=== PATIENT | female | born 2005 | race African-American/Black ===

== ENCOUNTER 2025-02-24 17:03 | Emergency (ER) | payer MEDICAID, SELFPAY ==
--- NOTE | 2025-02-24 17:17 | ED_ITS ---
HPI - General Adult General Chief complaint: Animal Bite Stated complaint: dog bite on face Time Seen by Provider: 02/24/25 17:19 Source: patient Mode of arrival: ambulatory Limitations: no limitations History of Present Illness ED Provider: Cristina Wilkins PA-C HPI narrative: Patient is a 19 year old assigned female at with no reported medical history presenting to the emergency department today with a dog bite to the face. Patient states that her friend's dog greeted her by jumping and bitting at her face. Patient states that she is unsure if the dog is up to date on rabies vaccinations and she is unsure if she is up to date on tetanus. Patient denies any dizziness, lightheadedness, abdominal pain, nausea, vomiting, fever, chills, blurry vision, double vision, loss of vision, chest pain, difficulty breathing, shortness of breath, back pain, night sweats, pain with urination, increased urinary frequency, increased urinary urgency, blood in her urine or stool, syncope or a near syncopal episode, bowel incontinence, bladder incontinence, or any other complaints at this time. Relieving factors: none Exacerbating factors: none Associated symptoms: denies other symptoms Treatments prior to arrival: none Related Data Previous Rx's ?Medication ?Instructions ?Recorded amoxicillin 875 mg-potassium 1 tab PO BID 10 days #20 tabs 02/24/25 clavulanate 125 mg tablet Allergies Allergy/AdvReac Type Severity Reaction Status Date / Time No Known Allergies Allergy Verified 02/24/25 17:19 Review of Systems 2 Constitutional: Constitutional: Reports no additional constitutional complaints, Denies chills, Denies fever(s) and Denies night sweats Eyes: Eyes: Reports no additional eye complaints, Denies blurry vision, Denies change in vision, Denies diplopia, Denies eye discharge, Denies loss of vision and Denies eye pain ENT: Denies dizziness Comments: dog bite to face Cardiovascular: Cardiovascular: Reports no additional cardiovascular complaints, Denies chest pain, Denies lightheadedness, Denies Loss of Consciousness and Denies dyspnea Respiratory: Respiratory: Reports no additional respiratory complaints and Denies dyspnea Gastrointestinal: Gastrointestinal: Reports no additional gastrointestinal complaints, Denies abdominal pain, Denies melena, Denies hematochezia, Denies change in bowel habits and Denies change in stool character Genitourinary: Genitourinary: Denies hematuria, Denies urinary frequency, Denies dysuria, Denies urinary incontinence, Denies urinary hesitancy and Denies urinary urgency Musculoskeletal: Musculoskeletal: Reports no additional musculoskeletal complaints, Denies numbness and Denies tingling Neurologic: Denies dizziness, Denies loss of vision, Denies numbness and Denies tingling Psychiatric: Psychiatric: Reports no additional psychiatric complaints Endocrine: Endocrine: Reports no additional endocrine complaints Hematologic/Lymphatic: Hematologic/Lymphatic: Reports no additional hematologic/lymphatic complaints Allergic/Immunologic: Allergic/Immunologic: Reports no additional allergic/immunologic complaints [facility] Past Medical History Attestation statement: The following information was validated with the patient. Source: old records reviewed and nursing notes reviewed Social History Social History Advance Directives: No Advance Directives Information Provided: No Do you have a plan to hurt others: No Plan Physical Exam ED Vital Signs: Vital Signs - 24 hr 02/24/25 17:18 02/24/25 19:02 Temperature 97.5 F 97.5 F Pulse Rate 107 H 107 H Respiratory Rate 18 18 Blood Pressure 133/71 133/71 Pulse Oximetry 99 99 Oxygen Delivery Method Room Air Room Air BMI result Body Mass Index 24.9 Const General: cooperative, no acute distress, alert and awake Nutritional Appearance: well nourished Orientation/consciousness: patient oriented x3 Limitations: no limitations HENMT Head: Yes normal to inspection and Yes atraumatic Ears: hearing grossly normal bilaterally and external ears normal General nose exam: Normal external nose present, no nasal discharge noted and no epistaxis Nose image: 2 1. small abrasion secondary to dog bite / scratch Mouth: Normal oral and palatal mucosa present, no drooling and no muffled voice Eyes General: appearance normal, both eyes and all related structures Periorbital: periorbital findings normal Eyelids: Yes eyelids normal Conjunctivae: conjunctivae normal Pupils: Equal, round and reactive pupils present EOM: EOMs intact bilaterally Neck Neck: Yes normal visual inspection, Yes full ROM and Yes no lymphadenopathy Chest Chest palpation & inspection: normal inspection of the chest Resp Effort & Inspection: normal respiratory effort and able to speak in complete sentences GI Inspection: Yes normal to inspection Neuro General: patient oriented x3, moves all extremities and CN's II-XI intact bilaterally Cranial nerves: Yes Equal, round and reactive pupils present Cognition (Neuro): normal cognition Extrem General: Yes normal to inspection, Yes full ROM and Yes capillary refill normal Psych Appearance: grossly normal Mental Status: mental status grossly normal Affect: normal affect Attitude: cooperative Thought process: Normal thought process present Thought content: Normal thought content present Insight: Good insight present (Psych) Medications Administered Discontinued Medications Generic Name Dose Route Start Last Admin Trade Name Freq PRN Reason Stop Dose Admin Amoxicillin/Clavulanate Potassium 875 mg 02/24/25 17:23 02/24/25 17:48 Amoxicillin/Potassium Clav 875 Mg Tablet PO 02/24/25 17:24 875 mg ONCE ONE Administration Diphtheria/Tetanus/Acell Pertussis 0.5 ml 02/24/25 17:23 02/24/25 17:50 Diphth,Pertus(Acell),Tet Adult 0.5 Ml Syringe IM 02/24/25 17:24 0.5 ml .ONCE ONE Administration Rabies Immune Globulin 1,314 unit 02/24/25 18:11 02/24/25 18:50 Rabies Immune Globulin/Pf 900 Unit/3 Ml Vial 20 unit/kg (1314 unit) 02/24/25 18:12 1,314 unit IM Administration ONCE ONE Rabies Vaccine 1 ml 02/24/25 18:11 02/24/25 18:53 Rabies Vaccine (Pcec)/Pf 1 Ml Vial IM 02/24/25 18:12 1 ml .ONCE ONE Administration Medical Decision Making Medical Decision Making MDM Narrative: Patient is a 19 year old assigned female at with no reported medical history presenting to the emergency department today with a dog bite to the face. Patient's physical exam was as noted in the physical exam portion of this note. I explained my physical exam findings to the patient. I answered all questions asked by the patient. Patient requested rabies and tdap vaccinations / prophylaxis which was given. Patient's wound was not gaping and did not need manual closure. I stressed the importance of the patient taking her medication as directed (either prescribed or as the over the counter packaging recommends). I stressed the importance of the patient following up with her primary care provider and the infusion center to complete the rabies series. I stressed the importance of the patient returning to the emergency department immediately if her symptoms were to worsen or if she were to develop any dizziness, shortness of breath, difficulty breathing, chest pain, blurry vision, loss of vision, nausea, vomiting, abdominal pain, fever, chills, back pain, or any other complaints. Patient verbalized agreement and understanding with this treatment plan and discharge. Differential Diagnosis Differential Diagnoses: The differential diagnosis associated with the presentation includes Dog bite Abrasion secondary to dog tooth Dog scratch Admission/Observation Consideration of admission/observation: Escalation of care including admission/observation considered Patient would have been admitted to the hospital had her clinical presentation warranted hospital admission. Prescription Management I considered prescription management with: Antibiotic (patient prescribed a prophylactic antibiotic given mechanism of injury) Discharge Plan Discharge Clinical Impression: Dog bite, Rabies exposure Patient Disposition: Home, Self-Care Instructions: Animal Bite (ED), Rabies (ED) Additional Instructions: You should get a call from the Infusion Center to schedule an appointment to receive the remainder of your required Rabies Vaccines. You will need a total of 3 more injections. If for some reason you do not receive a call from the infusion center - please call them at [phone]. Follow up with your primary care provider after completion of the vaccine to have a titer drawn to ensure the vaccines effectiveness. Take your antibiotic as prescribed. Be sure to eat with them. Be aware that some controls are less effective when on an antibiotic and you should use multiple forms of contraception. Antibiotics can cause diarrhea, to avoid this - please consider taking a probiotic. Keep the affected area clean but do NOT soak it and do NOT go into any public / open bodies of water (pool, hot tub, ocean, river, malone, stream, etc.) until it is completely healed. Follow up with your primary care provider. Return to the emergency department immediately if your symptoms worsen or if you develop any numbness, tingling, dizziness, shortness of breath, difficulty breathing, chest pain, blurry vision, loss of vision, nausea, vomiting, abdominal pain, fever, chills, back pain, or any other complaints. Please see the information below about our Patient Portal. If you are not yet enrolled in the [facility] Patient Portal, you will receive an enrollment email invitation following your visit to any [facility] setting. You may also self-enroll in the Patient Portal by visiting our website: [email or web address] The following information is required to access the Patient Portal: - Your [facility] Medical Record Number - Your personal home email address (must match what is in your electronic medical record, Registration staff can assist with this) - Name - Date of Capabilities of the Patient Portal: - Message some providers - View upcoming appointments - Access your health summary, medical history, and visit history - View current conditions and allergies - View procedure and lab results - View your medications, including guidelines, side effects, and precautions - Complete pre-appointment questionnaires requested by your provider - Ready summary reports of your office visits and procedures To access the Patient Portal Mobile [employer], follow these directions: - Search [employer] in the [employer] Store or [employer] Store - Download the Anshul - Search for [facility] - Enter your login/password Prescriptions: New amoxicillin-pot clavulanate 875-125 mg tablet 1 tab PO BID 10 Days Qty: 20 0RF Referrals: [facility] Family Medicine [Provider Group] (Call to establish and follow up with a primary care provider. If you already have a primary care provider, please follow up with them.) [facility] [Provider Group] (Call to establish and follow up with a primary care provider. If you already have a primary care provider, please follow up with them.) [facility] [Provider Group] (Call to establish and follow up with a primary care provider. If you already have a primary care provider, please follow up with them.) [facility] [Provider Group] (Call to establish and follow up with a primary care provider. If you already have a primary care provider, please follow up with them.) Stand Alone Forms: Work/School Release Interventions: ED Discharge Assessment Last Done: 02/24/25 19:02 Discharge Date/Time: 02/24/25 19:03 Print Language: Slovenian
[2025-02-24 17:18] VITALS: BP 133/71; PULSE 107; RESP 18; TEMP 36.4; O2SAT 99; BMI 24.9
[2025-02-24] MEDS: Amoxicillin/Potassium Clav 875 MG TABLET PO (17:48)
[2025-02-24] MEDS: Diphth,Pertus(ACell),Tet Adult 0.5 ML SYRINGE IM (17:50)
[2025-02-24] MEDS: Rabies Immune Globulin/PF 900 UNIT/3 ML VIAL 1314 UNIT IM (18:50)
[2025-02-24] MEDS: Rabies Vaccine (PCEC)/PF 1 ML VIAL IM (18:53)
[2025-02-24 19:02] VITALS: BP 133/71; PULSE 107; RESP 18; TEMP 36.4; O2SAT 99
== END 2025-02-24 19:03 | disposition home or self-care (01) ==
PROVIDERS: Emergency Provider Internal Medicine
DX: S01.85XA Open bite of other part of head, initial encounter (principal); W54.0XXA Bitten by dog, initial encounter; Y93.89 Activity, other specified; Y92.009 Unspecified place in unspecified non-institutional (private) residence as the place of occurrence of the external cause; Y99.9 Unspecified external cause status; Z23 Encounter for immunization; Z20.3 Contact with and (suspected) exposure to rabies
CPT/HCPCS: 90375; 90471; 90675; 90715; 96372; 99282; 99284

== ENCOUNTER 2025-03-10 10:00 | Outpatient (RCR) | payer MEDICAID, SELFPAY ==
[2025-02-27 12:49] VITALS: BP 109/66; PULSE 75; RESP 16; TEMP 36.5; O2SAT 100
[2025-02-27] MEDS: Rabies Vaccine (PCEC)/PF 1 ML VIAL IM (12:53)
[2025-03-03 10:17] VITALS: BP 114/79; PULSE 74; RESP 18; TEMP 36; O2SAT 100; BMI 25.1
[2025-03-03] MEDS: Rabies Vaccine (PCEC)/PF 1 ML VIAL IM (10:23)
[2025-03-10] MEDS: Rabies Vaccine (PCEC)/PF 1 ML VIAL IM (10:38)
[2025-03-10 10:42] VITALS: BP 106/64; PULSE 61; RESP 20; TEMP 36.1; O2SAT 98
== END 2025-03-10 11:00 | disposition home or self-care (01) ==
LOC: HO.INF 10:00
PROVIDERS: Visit Provider Physician Assistant Medical
DX: Z20.3 Contact with and (suspected) exposure to rabies (principal)
CPT/HCPCS: 90471; 90675